=== PATIENT | female | born 1960 | race African-American/Black ===

== ENCOUNTER 2019-02-05 08:17 | Emergency (ER) | payer MEDICAID, OTHER ==
[~2019-02-05] VITALS: Ht 162.6 cm; Wt 60.0 kg
[~2019-02-05 08:17] MED LIST: HYDR-1348 PO; ONDA4TAB5 PO; PROT40 PO
[2019-02-05] MEDS ORDERED: SODIUM CHLORIDE 0.9% 1,000 ML IV ONE (09:30)
[2019-02-05 11:31] LABS: BASOPHILS % 0.5 % (0.0-2.0); EOSINOPHILS % 0.7 % (0.0-5.0); HEMOGLOBIN. 13.6 g/dL (12.0-16.0); LYMPHOCYTES % 19.1 % (20.0-50.0); MEAN CORPUSCULAR VOLUME 97.7 fL (81.0-99.0); MEAN PLATELET VOLUME 9.7 fl (7.4-10.4); MONOCYTES % 7.8 % (2.0-8.0); NEUTROPHILS % 71.9 % (40.0-76.0); PLATELET 226 x1000/uL (130-400); RED BLOOD CELL COUNT 3.99 mill/uL (4.2-5.4); RED CELL DISTRIBUTION WIDTH 12.9 % (11.6-14.6)
[2019-02-05 11:36] LABS: PROTHROMBIN TIME 10.7 sec (9.6-11.0)
[2019-02-05 12:05] LABS: CHLORIDE 100 mEq/L (98-107)
[2019-02-05 12:24] LABS: ETHANOL BLOOD 354 mg/dL
[2019-02-05] MEDS ORDERED: LORAZEPAM 2MG/ML CPJ IV ONE (13:45)
[2019-02-05] MEDS ORDERED: POTASSIUM CHLORIDE 20MEQ TABLET SR PO ONE ×2 (14:45→21:52)
[2019-02-05 20:40] LABS: CHLORIDE 104 mEq/L (98-107)
[2019-02-05 22:30] VITALS: BP 142/82
== END 2019-02-05 23:03 | disposition home or self-care (01) ==
LOC: ER 08:17
DX: S01.01XA Laceration without foreign body of scalp, initial encounter (principal); S09.8XXA Other specified injuries of head, initial encounter; F10.229 Alcohol dependence with intoxication, unspecified; Y90.8 Blood alcohol level of 240 mg/100 ml or more; W18.39XA Other fall on same level, initial encounter; Y93.89 Activity, other specified; Y92.89 Other specified places as the place of occurrence of the external cause; Y99.8 Other external cause status; E11.65 Type 2 diabetes mellitus with hyperglycemia; F14.10 Cocaine abuse, uncomplicated
CPT/HCPCS: 36415; 70450; 80048; 80053; 80320; 85025; 85610; 96361; 96374; 99284; J2060; J7030; G0480

== ENCOUNTER 2022-02-23 03:17 | Emergency (ER) | payer MEDICAID, OTHER ==
[~2022-02-23] VITALS: Ht 162.6 cm; Wt 70.0 kg
[2022-02-23] MEDS ORDERED: METHOCARBAMOL 500MG TABLET PO ONE (04:15)
[2022-02-23] MEDS ORDERED: KETOROLAC 60MG/2ML VIAL IM ONE (04:15)
[2022-02-23] MEDS ORDERED: METH-653 MT (05:22)
[2022-02-23] MEDS ORDERED: IBUP-2028 MT (05:22)
[2022-02-23] MEDS ORDERED: HYDROCODONE/ACETAMINOPHEN 5/325MG TABLET PO ONE (05:30)
[2022-02-23 05:44] VITALS: BP 108/88
== END 2022-02-23 05:45 | disposition home or self-care (01) ==
LOC: ER 03:17
DX: M54.50 Low back pain, unspecified (principal); I10 Essential (primary) hypertension; E11.9 Type 2 diabetes mellitus without complications; F14.10 Cocaine abuse, uncomplicated
CPT/HCPCS: 96372; 99283; J1885